=== PATIENT | female | born 1935 | race American Indian/Alaskan Native ===

== ENCOUNTER 2017-05-01 11:04 | Observation (INO) | payer MEDICARE, MEDICAID ==
[2017-05-01] MEDS ORDERED: Tetracaine 0.5% Ophth (OR ONLY) OU STA (12:02)
[2017-05-01] MEDS ORDERED: Fluorescein 1 mg Ophthalmic Strip OD STA (12:02)
[2017-05-01] MEDS ORDERED: Tetracaine 0.5% Ophth (OR ONLY) ONE (12:04)
[2017-05-01] MEDS ORDERED: Fluorescein 1 mg Ophthalmic Strip ONE (12:04)
[2017-05-01 13:16] LABS: BASO # 0.1 K/uL (0.0-0.2); BASO % 1.3 % (0.0-2.0); EOS # 0.1 K/uL (0.0-0.7); EOS % 1.6 % (0.0-4.0); HEMATOCRIT 40.7 % (34.0-47.0); LYMPH # 1.4 K/uL (1.0-4.3); LYMPH % 23.1 % (20.0-40.0); MEAN CELL VOLUME 78.9 fL (81.0-99.0); MEAN CORPUSCULAR HEMOGLOBIN 25.4 pg (27.0-31.0); MEAN CORPUSCULAR HGB CONC 32.2 g/dL (33.0-37.0); MEAN PLATELET VOLUME 9.6 fL (7.2-11.7); MONO # 1.1 K/uL (0.0-0.8); MONO % 18.7 % (0.0-10.0); RED CELL DISTRIBUTION WIDTH 15.9 % (11.5-14.5); WHITE BLOOD COUNT 5.9 K/uL (4.8-10.8)
[2017-05-01 13:22] LABS: POTASSIUM 5.1 mmol/L (3.6-5.2)
[2017-05-01 13:24] LABS: ALB/GLOB RATIO 1.1 (1.0-2.1); BILIRUBIN,TOTAL 0.5 mg/dL (0.2-1.3)
[2017-05-01 13:25] LABS: CALCIUM 10.2 mg/dl (8.6-10.4)
--- NOTE | 2017-05-01 13:45 | C.PDOC ---
History Of Present Illness 82 year old female was brought to the ED by EMS from half-way for evaluation of right eye rash for three days. Patient denies visual changes, fever, or chills. Time Seen by Provider: 05/01/17 11:59 Chief Complaint (Nursing): Eye Problem History Per: Patient, EMS History/Exam Limitations: no limitations Onset/Duration Of Symptoms: Days (3) Current Symptoms Are (Timing): Still Present Injury To Eye?: No Wears Contact Lens?: No Associated Symptoms: Other (rash ) Recent travel outside of the [place]: No Additional History Per: Correction Past Medical History Reviewed: Historical Data, Nursing Documentation, Vital Signs Vital Signs: Last Vital Signs Temp 99.0 F 05/01/17 21:30 Pulse 99 H 05/01/17 21:30 Resp 20 05/01/17 21:30 BP 140/87 05/01/17 21:30 Pulse Ox 99 05/01/17 21:30 - Medical History PMH: Alzheimer's Disease, Arthritis, Bronchitis, Dementia, HTN, Chronic Kidney Disease - [facility] Procedures EXCISION OF CECUM, ENDO, DIAGN (07/09/15) EXCISION OF TRANSVERSE COLON, ENDO, DIAGN (07/09/15) Family History: States: Unknown Family Hx - Social History Hx Alcohol Use: No Hx Substance Use: No - Immunization History Hx Tetanus Toxoid Vaccination: No Hx Influenza Vaccination: Yes Hx Pneumococcal Vaccination: Yes Review Of Systems Constitutional: Negative for: Fever, Chills Eyes: Negative for: Pain, Vision Change Cardiovascular: Negative for: Chest Pain, Palpitations Respiratory: Negative for: Cough, Shortness of Breath Gastrointestinal: Negative for: Nausea, Vomiting Skin: Positive for: Rash (to right eye ) Physical Exam - Physical Exam Appears: Non-toxic, No Acute Distress Skin: Warm, Dry, Rash (vesicles to right upper eyelid, right jain, and slightly below the right eye ) Head: Atraumatic Eye(s): right: PERRL, EOMI, Other (mild conjunctival injection ), left: Normal Inspection Ear(s): Bilateral: Normal Oral Mucosa: Moist Neck: Normal ROM, Supple Chest: Symmetrical, No Deformity Cardiovascular: Rhythm Regular, No Murmur Respiratory: Normal Breath Sounds, No Rales, No Rhonchi, No Wheezing Gastrointestinal/Abdominal: Soft, No Tenderness, No Distention, No Guarding, No Rebound Extremity: Normal ROM, No Tenderness Neurological/Psych: Oriented x3 ED Course And Treatment - Laboratory Results Result Diagrams: 05/01/17 13:10 05/01/17 13:10 O2 Sat by Pulse Oximetry: 96 (RA) Progress Note: Fluorescein stain was performed showing diffuse uptake of the right eye. case was d/w who agreed with IV Acyclovir, doesn't recommend any ophthalmic drops and sts he will see patient tomorrow in the the hospital. Case was d/w pt's PMD who accepted patient to [facility] for observation and requested Ancef IV to be added to pt's treatment. Disposition - Disposition Disposition: HOSPITALIZED Disposition Time: 14:44 Condition: FAIR - Clinical Impression Clinical Impression: Herpes zoster dermatitis of eyelids - PA / [employer] / Resident Statement MD/DO has reviewed & agrees with the documentation as recorded. - Scribe Statement The provider has reviewed the documentation as recorded by the Scribe Janee Schulz All medical record entries made by the Scribe were at my direction and personally dictated by me. I have reviewed the chart and agree that the record accurately reflects my personal performance of the history, physical exam, medical decision making, and the department course for this patient. I have also personally directed, reviewed, and agree with the discharge instructions and disposition. Decision To Admit - Pt Status Changed To: Hospital Disposition Of: Observation - . Bed Request Type: Regular Admitting Physician: Valdez Baum Patient Diagnosis: Herpes zoster dermatitis of eyelids
--- NOTE | 2017-05-01 14:25 | RAD ---
HISTORY: admission COMPARISON: 07/02/2015 FINDINGS: LUNGS: Mild venous congestion. PLEURA: No significant pleural effusion identified, no pneumothorax apparent. CARDIOVASCULAR: Tortuous ectatic aorta. Cardiomegaly. OSSEOUS STRUCTURES: No significant abnormalities. VISUALIZED UPPER ABDOMEN: Normal. OTHER FINDINGS: None. IMPRESSION: Mild venous congestion.
[2017-05-01 15:13] LABS: RBC URINE < 1 /hpf (0-3); URINE BILIRUBIN NEGATIVE (NEGATIVE); URINE BLOOD NEGATIVE (NEGATIVE); URINE COLOR Yellow (YELLOW); URINE GLUCOSE (UA) NORMAL (Normal); URINE KETONE NEGATIVE (NEGATIVE); URINE LEUKOCYTE ESTERASE NEG Leu/uL (Negative); URINE PROTEIN NEGATIVE (NEGATIVE); URINE UROBILINOGEN NORMAL mg/dL (0.2-1.0); WBC URINE < 1 /hpf (0-5)
[2017-05-01] MEDS ORDERED: ceFAZolin 1 gm FROZEN Premix 1 GM/50 ML ML IVPB ONE (17:05)
[2017-05-01] MEDS ORDERED: Labetalol 25mg/5ml Syringe IVP STA (23:25)
[2017-05-02 01:24] VITALS: RESP 20
--- NOTE | 2017-05-02 08:44 | CP.PCM.HP ---
History of Present Illness - History of Present Illness History of Present Illness: CC: Rash 82 y/o female with Dementia, HTN and DJD w/ gait dis. Patient noted to have rash/ small bullae on right side of face from forehead to cheek. Rash is painful. she was sent to ER for evaluation Present on Admission - Present on Admission Any Indicators Present on Admission: Yes History of DVT/PE: No History of Uncontrolled Diabetes: No Urinary Catheter: No Decubitus Ulcer Present: No Review of Systems - Review of Systems Systems not reviewed;Unavailable: Acuity of Condition, Respiratory Distress - Constitutional Constitutional: absent: Anorexia, Chills, Night Sweats, Sleep Apnea - EENT Eyes: absent: Itchy Eyes, Pain, Loss of Vision Ears: Dizziness. absent: Ear Discharge, Ear Pain, Tinnitus Nose/Mouth/Throat: Dysphagia, Facial Pain. absent: Nasal Congestion, Post Nasal Drip, Bleeding Gums, Sore Throat, Neck Pain - Cardiovascular Cardiovascular: absent: Chest Pain, Diaphoresis, Leg Edema, Palpitations, Pedal Edema - Gastrointestinal Gastrointestinal: absent: Abdominal Pain, Dyspepsia, Excessive Flatus, Hematochezia, Loose Stools - Genitourinary Genitourinary: absent: Dysuria, Pyuria, Urinary Urgency, Voiding Freq/Small Amts - Reproductive: Female Reproductive:Female: absent: Amenorrhea/ Control, Menopausal, Abnormal Vaginal Bleeding - Musculoskeletal Musculoskeletal: absent: Abnormal Gait, Atrophy, Back Pain, Muscle Weakness, Neck Pain, Numbness - Integumentary Integumentary: absent: Changing Lesions, Rash, Swelling - Neurological Neurological: absent: Abnormal Hearing, Lack of Coordination, Loss of Vision, Restless Legs, Syncope - Endocrine Endocrine: absent: Excessive Sweating, Fatigue, Polyuria - Hematologic/Lymphatic Hematologic: absent: Easy Bleeding, Easy Bruising, Lymphadenopathy Past Patient History - Infectious Disease Hx of Infectious Diseases: None - Past Medical History & Family History Past Medical History?: Yes - Past Social History Smoking Status: Never Smoked - CARDIAC Hx Hypertension: Yes - PULMONARY Hx Bronchitis: Yes - NEUROLOGICAL Hx Alzheimer's Disease: Yes Hx Dementia: Yes - HEENT Hx HEENT Problems: No - RENAL Hx Chronic Kidney Disease: Yes - ENDOCRINE/METABOLIC Hx Endocrine Disorders: No - HEMATOLOGICAL/ONCOLOGICAL Hx Blood Disorders: No - INTEGUMENTARY Hx Dermatological Problems: No - MUSCULOSKELETAL/RHEUMATOLOGICAL Hx Arthritis: Yes - GASTROINTESTINAL Hx Gastrointestinal Disorders: Yes Other/Comment: GI BLEED - GENITOURINARY/GYNECOLOGICAL Hx Genitourinary Disorders: No - PSYCHIATRIC Hx Substance Use: No - SURGICAL HISTORY Hx Surgeries: No - ANESTHESIA Hx Anesthesia: No Hx Anesthesia Reactions: No Hx Malignant Hyperthermia: No Meds Allergies/Adverse Reactions: Allergies Allergy/AdvReac Type Severity Reaction Status Date / Time No Known Allergies Allergy Verified 05/01/17 11:15 Physical Exam - Constitutional Appears: No Acute Distress - Eye Exam Eye Exam: Normal appearance, Periorbital swelling - ENT Exam ENT Exam: Mucous Membranes Moist. absent: Mucous Membranes Dry - Respiratory Exam Respiratory Exam: Clear to Auscultation Bilateral. absent: Rales, Rhonchi, Wheezes - Cardiovascular Exam Cardiovascular Exam: +S1, +S2. absent: Gallop, REGULAR RHYTHM, JVD, Systolic Murmur - Extremities Exam Extremities exam: Negative for: calf tenderness, joint swelling, normal capillary refill, pedal edema Results - Vital Signs Recent Vital Signs: Last Vital Signs Temp 98.8 F 05/01/17 23:37 Pulse 90 05/01/17 23:37 Resp 20 05/01/17 23:37 BP 175/94 H 05/01/17 23:37 Pulse Ox 98 05/01/17 23:37 - Labs Result Diagrams: 05/01/17 13:10 05/01/17 13:10 Labs: Laboratory Results - last 24 hr 05/01/17 05/01/17 05/01/17 13:10 13:10 15:07 WBC 5.9 RBC 5.15 Hgb 13.1 Hct 40.7 MCV 78.9 L MCH 25.4 L MCHC 32.2 L RDW 15.9 H Plt Count 232 MPV 9.6 Neut % (Auto) 55.3 Lymph % (Auto) 23.1 [place] % (Auto) 18.7 H Eos % (Auto) 1.6 Baso % (Auto) 1.3 Neut # 3.3 Lymph # 1.4 [place] # 1.1 H Eos # 0.1 Baso # 0.1 Sodium 141 Potassium 5.1 Chloride 103 Carbon Dioxide 26 Anion Gap 17 BUN 22 H Creatinine 1.5 H Est GFR ( Amer) 40 Est GFR (Non-Af Amer) 33 Random Glucose 67 Calcium 10.2 Total Bilirubin 0.5 AST 19 ALT 26 Alkaline Phosphatase 63 Total Protein 8.0 Albumin 4.1 Globulin 3.9 Albumin/Globulin Ratio 1.1 Urine Color Yellow Urine Clarity Clear Urine pH 5.0 Ur Specific Helm 1.015 Urine Protein Negative Urine Glucose (UA) Normal Urine Ketones Negative Urine Blood Negative Urine Nitrate Negative Urine Bilirubin Negative Urine Urobilinogen Normal Ur Leukocyte Esterase Neg Urine WBC (Auto) < 1 Urine RBC (Auto) < 1 Ur Squamous Epith Cells 1 Assessment & Plan - Assessment and Plan (Free Text) Assessment: Opthalmic herpes zoster HTN, Dementia Cont meds; Discharge if clear with optha supportive care
[2017-05-02 09:51] VITALS: O2SAT 96
[2017-05-02] MEDS ORDERED: Enoxaparin 40 mg Syringe SC SCH (10:00)
[2017-05-02 10:34] VITALS: BMI 43.0
[2017-05-02] MEDS: Tobramycin/Dexamethasone (Tobradex) Opth Sol (2.5 ml) OD SCH ×2 (19:04→23:06)
[2017-05-03] MEDS: Tobramycin/Dexamethasone (Tobradex) Opth Sol (2.5 ml) OD SCH (05:27)
--- NOTE | 2017-05-03 08:33 | CP.PCM.PN ---
Subjective - Date & Time of Evaluation Date of Evaluation: 05/03/17 Time of Evaluation: 08:14 - Subjective Subjective: Patient not seen c/o Optha. Facial swelling markedly decrease. Still w/ bullan right side. (+) eyes w/ minimal crusting. Objective - Vital Signs/Intake and Output Vital Signs (last 24 hours): Temp Pulse Resp BP Pulse Ox 98.8 F 78 20 170/95 H 96 05/03/17 07:00 05/03/17 07:00 05/03/17 07:00 05/03/17 07:00 05/03/17 07:00 Intake and Output: 05/03/17 05/03/17 06:59 18:59 Intake Total 400 Balance 400 - Medications Medications: Current Medications Acyclovir (Zovirax) 800 mg PO 5XD [facility] Last Admin: 05/02/17 19:04 Dose: 800 mg Enoxaparin Sodium (Lovenox) 40 mg SC DAILY [facility] Ceftriaxone Sodium 1 gm/ (Sodium Chloride) 100 mls @ 100 mls/hr IVPB DAILY [facility] Last Admin: 05/02/17 10:29 Dose: 100 mls/hr Losartan Potassium (Cozaar) 100 mg PO DAILY [facility] Last Admin: 05/02/17 10:28 Dose: 100 mg Paroxetine HCl (Paxil) 20 mg PO DAILY [facility] Last Admin: 05/02/17 10:28 Dose: 20 mg Tobramycin/Dexamethasone (Tobradex Opht Susp) 0 ml OD Q6 [facility] Last Admin: 05/03/17 05:27 Dose: 1 drop - Labs Labs: 05/01/17 13:10 05/01/17 13:10 - Constitutional Appears: No Acute Distress - Eye Exam Eye Exam: Normal appearance Additional comments: (+) min crusting but eyelid swelling is markedly decrease; good light vision - ENT Exam ENT Exam: Mucous Membranes Moist - Neck Exam Neck Exam: Full ROM. absent: Normal Inspection, Thyromegaly - Cardiovascular Exam Cardiovascular Exam: REGULAR RHYTHM, +S1, +S2. absent: Gallop, JVD, Murmur - GI/Abdominal Exam GI & Abdominal Exam: Soft. absent: Tenderness - Extremities Exam Extremities Exam: Full ROM, Normal Capillary Refill. absent: Calf Tenderness, Joint Swelling Assessment and Plan - Assessment and Plan (Free Text) Assessment: Ophthalmic Herpes zoster HTN; CKD Will discharge back to [place] Cont meds; add Coeg
[2017-05-03] MEDS ORDERED: Enoxaparin 40 mg Syringe SC SCH (10:00)
[2017-05-03] MEDS ORDERED: Bacitracin/Neomycin/Polymyxin OPHT OINT OD SCH (10:00)
[2017-05-03] MEDS ORDERED: Tobramycin/Dexamethasone (Tobradex) Opth Sol (2.5 ml) OD SCH (12:00)
[2017-05-03 16:13] VITALS: BP 139/77; PULSE 74; TEMP 98.7
[2017-05-04] MEDS ORDERED: Enoxaparin 40 mg Syringe SC SCH (10:00)
== END 2017-05-03 17:00 ==
LOC: C.ER 11:04 → C.9E 14:43 → C.5S 21:09
PROVIDERS: ADMIT Internal Medicine; ATTEND Internal Medicine
DX: B02.30 Zoster ocular disease, unspecified (principal); I12.9 Hypertensive chronic kidney disease with stage 1 through stage 4 chronic kidney disease, or unspecified chronic kidney disease; N18.9 Chronic kidney disease, unspecified; F02.80 Dementia in other diseases classified elsewhere, unspecified severity, without behavioral disturbance, psychotic disturbance, mood disturbance, and anxiety; G30.9 Alzheimer's disease, unspecified; J40 Bronchitis, not specified as acute or chronic
CPT/HCPCS: 71010; 80053; 81001; 85025; 99285; G0378; J0133; J0690; J0696; J1650; J8499

== ENCOUNTER 2017-05-03 18:01 | Emergency (ER) | payer MEDICARE, MEDICAID ==
[2017-05-03 18:01] VITALS: BMI 43.0
[2017-05-03 18:06] VITALS: RESP 20
--- NOTE | 2017-05-03 19:55 | C.PDOC ---
History Of Present Illness Patient is an 82 y/o female who presents to the ED with complaints of pain to the right side of temporal/parietal scalp and lateral aspect of right shoulder s /p fall from a stretcher. Patient was seen here previously for shingles on the right side of face; patient was discharged and transferred to rehab facility at [facility]. Patient states to have been sitting at the end of the stretcher when she tipped forward and hit right shoulder and forehead on the ground; denies any LOC. No other complaints at this time. Time Seen by Provider: 05/03/17 19:07 Chief Complaint (Nursing): Medical Clearance History Per: Patient History/Exam Limitations: no limitations Onset/Duration Of Symptoms: Hrs Recent travel outside of the [place]: No Past Medical History Reviewed: Historical Data, Nursing Documentation, Vital Signs Vital Signs: Last Vital Signs Temp 96.8 F L 05/03/17 18:04 Pulse 82 05/03/17 18:04 Resp 20 05/03/17 18:04 BP 152/82 H 05/03/17 18:04 Pulse Ox 98 05/03/17 21:34 - Medical History PMH: Alzheimer's Disease, Arthritis, Bronchitis, Dementia, HTN, Chronic Kidney Disease Other Surgeries: EXCISION OF CECUM, ENDO, DIAGN (07/09/15). EXCISION OF TRANSVERSE COLON, ENDO, DIAGN (07/09/15 - [facility] Procedures EXCISION OF CECUM, ENDO, DIAGN (07/09/15) EXCISION OF TRANSVERSE COLON, ENDO, DIAGN (07/09/15) Family History: States: Unknown Family Hx - Social History Hx Alcohol Use: No Hx Substance Use: No - Immunization History Hx Tetanus Toxoid Vaccination: No Hx Influenza Vaccination: Yes Hx Pneumococcal Vaccination: Yes Review Of Systems Constitutional: Negative for: Fever, Chills Cardiovascular: Negative for: Chest Pain Respiratory: Negative for: Shortness of Breath Musculoskeletal: Positive for: Shoulder Pain (lateral aspecet of right shoulder) , Other (pain to the right side of temporal/parietal scalp) Physical Exam - Physical Exam Appears: Non-toxic Skin: Normal Color, Warm, Other (swelling, erythema, and vesicles on right side of forehead/temporal area, around the eye, and on right cheek due to shingles) Head: Atraumatic, Normacephalic, No Tenderness, No Swelling, No Laceration, Other (no bruising) Oral Mucosa: Moist Chest: Symmetrical Cardiovascular: Rhythm Regular, No Murmur Respiratory: Normal Breath Sounds, No Rales, No Rhonchi, No Wheezing Gastrointestinal/Abdominal: Soft, No Tenderness Extremity: Normal ROM (right shoulder), No Swelling (right shoulder), Other ( right shoulder negative for bruising and abrasion) Neurological/Psych: Oriented x3, Normal Speech, Normal Cognition ED Course And Treatment O2 Sat by Pulse Oximetry: 98 Pulse Ox Interpretation: Normal - Other Rad CT Head X-Ray: Viewed By Me Interpretation: right shoulder without evidence of fracture or dislocation - CT Scan/US CT head Other Rad Studies (CT/US): Read By Radiologist, Radiology Report Reviewed CT/US Interpretation: No acute intracranial hemorrhage, or suspicious mass effect. Progress Note: Head CT and shoulder XR ordered. Reevaluation Time: 21:45 Reassessment Condition: Improved (Patient remains comfortable) Disposition Counseled Patient/Family Regarding: Studies Performed, Diagnosis, Need For Followup - Disposition Referrals: Valdez Baum MD [Staff Provider] - Disposition: TRANSF TO SNF Disposition Time: 21:45 Condition: STABLE Instructions: Head Injury (ED), Contusion in Adults (ED) Forms: [email or web address] (Sami) - Clinical Impression Clinical Impression: Head injury, Contusion of shoulder, right - Scribe Statement The provider has reviewed the documentation as recorded by the Scribe Matilda Tiwari All medical record entries made by the Scribe were at my direction and personally dictated by me. I have reviewed the chart and agree that the record accurately reflects my personal performance of the history, physical exam, medical decision making, and the department course for this patient. I have also personally directed, reviewed, and agree with the discharge instructions and disposition.
--- NOTE | 2017-05-03 21:20 | CT ---
EXAM: CT Head Without Intravenous Contrast CLINICAL HISTORY: 82 years old, female; Injury or trauma; Fall; Initial encounter; Abrasion; Not specified; Additional info: Head injury TECHNIQUE: Axial computed tomography images of the head/brain without intravenous contrast. All CT scans at this facility use one or more dose reduction techniques, viz.: automated exposure control; ma/kV adjustment per patient size (including targeted exams where dose is matched to indication; i.e. head); or iterative reconstruction technique. Coronal and sagittal reformatted images were created and reviewed. COMPARISON: No relevant prior studies available. FINDINGS: Brain: No acute intracranial hemorrhage. Age-appropriate periventricular white matter disease. No edema. Ventricles: Age-appropriate ventriculomegaly. Bones: No acute displaced fracture. Sinuses: Unremarkable as visualized. No acute sinusitis. Mastoid air cells: Unremarkable as visualized. No mastoid effusion. IMPRESSION: No acute intracranial hemorrhage, or suspicious mass effect.
[2017-05-03 22:02] VITALS: TEMP 98.5
[2017-05-03 23:29] VITALS: BP 156/82; PULSE 86; O2SAT 97
--- NOTE | 2017-05-04 08:17 | RAD ---
PROCEDURE: Radiographs of the Right Shoulder HISTORY: fall from a stretcher COMPARISON: No prior. FINDINGS: BONES: No fracture. JOINTS: Glenohumeral joint preserved. Right acromioclavicular moderate osteoarthritis. SOFT TISSUES: Normal. OTHER FINDINGS: None. IMPRESSION: No fracture or dislocation. Right acromioclavicular joint arthrosis
== END 2017-05-03 23:27 ==
LOC: C.ER 18:01
DX: S40.011A Contusion of right shoulder, initial encounter (principal); S09.90XA Unspecified injury of head, initial encounter; W08.XXXA Fall from other furniture, initial encounter; Y93.89 Activity, other specified; Y92.128 Other place in nursing home as the place of occurrence of the external cause